=== PATIENT | female | born 1975 | race Two or more races ===

== ENCOUNTER 2016-07-20 14:14 | Inpatient (IN) | payer OTHER ==
[2016-07-20] MEDS ORDERED: KETOROLAC TROMETHAMINE 30 MG/1 ML VIAL IM ONE (15:06)
--- NOTE | 2016-07-20 15:08 | PDOC ---
History of Present Illness - General Chief Complaint: Pain Stated Complaint: LT SIDE PAIN,WEAKNESS,SWELLING Time Seen by Provider: 07/20/16 14:35 - History of Present Illness Initial Comments: 07/20/16 15:07 CHIEF COMPLAINT: left lower back pain, hip pain, leg pain HISTORY OF PRESENT ILLNESS: 41 yo F with hx of sciatica s/p lumbar spine surgery presents to [facility] with pain to the L side of her back, hip, and left leg. Patient states the pain sharp and is runs down the left side of her leg and she has severe pain any time she moves, stands, or walks. She reports that she normally takes up to 3 tabs of Baclofen for her sciatica but she took 6 yesterday as well as 3 tabs of Skelaxin, on top of 3 Gabapentin and 2 Aleve with no relief. She denies any loss of bowel of bladder function or urinary symptoms. She reports the pain to her left lower back and hip as a "burning" pain and that it "feels hot and swollen" to her left side. She also reports nausea today but denies any vomiting, diarrhea, or rectal bleeding. No recent travel or sick contacts. PAST MEDICAL HISTORY: Denies past medical history FAMILY HISTORY: Denies SOCIAL HISTORY: Occasional alcohol use. Denies tobacco, illicit drug use. SURGICAL HISTORY: Denies ALLERGIES: No known drug allergies REVIEW OF SYSTEMS General/Constitutional: Denies fever or chills. Denies weakness, weight change. HEENT: Denies change in vision. Denies ear pain or discharge. Denies sore throat. Cardiovascular: Denies chest pain or shortness of breath. Respiratory: Denies cough, wheezing, or hemoptysis. Gastrointestinal: Denies nausea, vomiting, diarrhea or constipation. Denies rectal bleeding. Genitourinary: Denies dysuria, frequency, or change in urination. Musculoskeletal: Severe 10/10 left lower back/hip/leg pain limiting movement. Skin and breasts: Denies rash or easy bruising. Neurologic: Denies headache, vertigo, loss of consciousness, or loss of sensation. PHYSICAL EXAM General Appearance: Uncomfortable-appearing, appropriately dressed. No apparent distress. HEENT: EOMI, PERRLA, normal ENT inspection, normal voice, TMs normal, pharynx normal. No conjunctival pallor. No photophobia, scleral icterus. Neck: Supple. Trachea midline. No tenderness, rigidity, carotid bruit, stridor , lymphadenopathy, or thyromegaly. Respiratory/Chest: Lungs CTAB. Cardiovascular: RRR. S1, S2. Gastrointestinal/Abdominal: Normal bowel sounds. Abdomen soft, non-distended. No tenderness or rebound tenderness. No organomegaly, pulsatile mass, guarding , hernia, hepatomegaly, splenomegaly. Lymphatic: No adenopathy, tenderness. Musculoskeletal/Extremities: Tenderness to left lower back vs L CVA tenderness. No saddle anesthesia or loss of sensation to lower legs bilaterally. Normal inspection. FROM of all extremities, normal capillary refill. Pelvis Stable. No CVA tenderness. No tenderness to extremities, pedal edema, swelling, erythema or deformity. Integumentary: Appropriate color, dry, warm. No cyanosis, erythema, jaundice or rash Neurologic: director of parks and recreation II-XII intact. Fully oriented, alert. Appropriate mood/affect. Motor strength 5/5. No appreciable EOM palsy, facial droop or sensory deficit. A&Ox3, follow commands, respond appropriately CN2-12: conjugate gaze, pupil round, equal and reactive to light. Visual field full to confrontation. EOMI without nystagmus, pursuit is smooth without saccade. Facial sensation and muscle activation intact bilaterally. Hearing intact bilaterally. Palate elevate symmetrically. Shoulder shrug and neck turn full strength. Tongue protrude midline. 07/20/16 16:50 07/20/16 17:36 Past History - Past Medical History Allergies/Adverse Reactions: Allergies Allergy/AdvReac Type Severity Reaction Status Date / Time No Known Allergies Allergy Verified 07/20/16 14:20 Home Medications: Ambulatory Orders Diazepam [Valium] 5 mg PO Q8H PRN #12 tablet MDD 3 07/20/16 GI Disorders: Yes (DIVERTICULITIS) - Psycho/Social/Smoking Cessation Hx Anxiety: No Suicidal Ideation: No Smoking Status: No Smoking History: Never smoked Number of Cigarettes Smoked Daily: 0 Information on smoking cessation initiated: No Hx Alcohol Use: No *Physical Exam - Vital Signs Last Vital Signs Temp Pulse Resp BP Pulse Ox 98 F 92 H 18 120/77 99 07/20/16 14:17 07/20/16 14:17 07/20/16 14:17 07/20/16 14:17 07/20/16 14:17 Medical Decision Making - Medical Decision Making 07/20/16 16:50 41 yo F with hx of sciatica s/p lumbar spine surgery presents to [facility] with pain to the L side of her back, hip, and left leg. -Upreg -30 mg Toradol Patient continues to c/o pain. -1 tab Percocet Patient reassessed, still complains of pain. -5mg Valium Patient reassessed, still unable to lie flat or move without pain, will admit to obs intractable back pain. Patient's PCP is MD Mike Jimenez. 07/20/16 17:43 MD Jimenez paged. Awaiting callback. 07/20/16 18:06 MD Jimenez paged again. Awaiting callback. Microblogged hospitalist 18:25 pm. MD Jimenez called back at 18:40pm MD Lou admits for Barbara today. Carmine paged 18:45. 07/20/16 19:18 Discussed case with MD Lou who accepts patient for inpatient observation. *DC/Admit/Observation/Transfer Diagnosis at time of Disposition: Acute exacerbation of chronic low back pain - Discharge Dispostion Admit: Yes - Prescriptions Prescriptions: Diazepam [Valium] 5 mg PO Q8H PRN #12 tablet MDD 3 PRN Reason: Back Pain - Referrals Referrals: Mike Jimenez MD [Primary Care Provider] - Liz Don MD [Staff Physician] - - Patient Instructions Printed Discharge Instructions: DI for Back Pain With Sciatica Additional Instructions: Please take medications as prescribed and follow up with Dr. Don tomorrow. If you experience any loss of bowel or bladder function, vomiting, loss of sensation to your legs, or any new or worsening symptoms, please return to the ER.
[2016-07-20] MEDS ORDERED: KETOROLAC TROMETHAMINE 30 MG/1 ML VIAL ONE (15:39)
[2016-07-20 15:56] LABS: URINE APPEARANCE CLEAR; URINE BLOOD NEGATIVE (NEGATIVE); URINE COLOR AMBER; URINE GLUCOSE (UA) NEGATIVE (NEGATIVE); URINE KETONE TRACE (NEGATIVE); URINE NITRITE NEGATIVE (NEGATIVE); URINE UROBILINOGEN 2.0 E.U/dl E.U./dl (0.2-1.0)
[2016-07-20 16:10] LABS: URINE LEUK ESTERASE TRACE (NEGATIVE); URINE PROTEIN 1+ (NEGATIVE)
[2016-07-20 16:12] LABS: URINE MUCUS RARE; URINE RBC 14 /hpf (0-3); URINE WBC 1 /hpf (3-5)
[2016-07-20] MEDS ORDERED: OXYCODONE/APAP 5/325MG COMBO TABLET PO ONE (16:24)
[2016-07-20] MEDS ORDERED: OXYCODONE/APAP 5/325MG COMBO TABLET ONE (16:32)
[2016-07-20] MEDS ORDERED: diazePAM 5 MG TABLET PO ONE (16:56)
[2016-07-20] MEDS ORDERED: diazePAM 5 MG TABLET ONE (17:00)
[2016-07-20] MEDS ORDERED: HYDROmorphone HCL CARPU-JECT 1 MG/1 ML DISP.SYRIN IVPUSH ONE (19:12)
[2016-07-20] MEDS ORDERED: ONDANSETRON 4 MG/2 ML VIAL ONE (22:18)
[2016-07-20] MEDS ORDERED: morphine CARPU-JECT 4 MG/1 ML DISP.SYRIN ONE (22:18)
[2016-07-20] MEDS ORDERED: morphine CARPU-JECT 4 MG/1 ML DISP.SYRIN IVPUSH ONE (22:31)
[2016-07-20] MEDS ORDERED: ONDANSETRON 4 MG/2 ML VIAL IVPB ONE (22:32)
[2016-07-21 00:40] VITALS: BMI 27.7
[2016-07-21] MEDS ORDERED: ONDANSETRON 4 MG/2 ML VIAL IVPB PRN (03:13)
[2016-07-21] MEDS ORDERED: morphine CARPU-JECT 4 MG/1 ML DISP.SYRIN IVPUSH ONE (03:15)
[2016-07-21] MEDS: morphine CARPU-JECT 4 MG/1 ML DISP.SYRIN IVPUSH PRN ×2 (08:36→13:00)
[2016-07-21] MEDS: HEPARIN NA (PORCINE) 5,000 UNITS/ML 1ML VIAL SQ SCH ×2 (10:49→21:48)
--- NOTE | 2016-07-21 12:01 | CONSULT ---
Consult - text type - Consultation Consultation Note: Neurology History of Present Illness CHIEF COMPLAINT: left lower back pain, hip pain, leg pain HISTORY OF PRESENT ILLNESS: 41 yo F with hx of sciatica s/p lumbar spine surgery with ongoing low back pain with radiation down L side of her back, hip, and left leg. Patient states the pain sharp and is runs down the left side of her leg and she has severe pain any time she moves, stands, or walks. She reports that she normally takes up to 3 tabs of Baclofen for her sciatica but she took 6 yesterday as well as 3 tabs of Skelaxin, on top of 3 Gabapentin and 2 Aleve with no relief. She denies any loss of bowel of bladder function or urinary symptoms. She reports the pain to her left lower back and hip as a "burning" pain and that it "feels hot and swollen" to her left side. Does not have recent MRI and appears uncomfortable, pain mgmt consulted. Allergies/Adverse Reactions: Allergies Allergy/AdvReac Type Severity Reaction Status Date / Time No Known Allergies Allergy Verified 07/20/16 14:20 Active Medications Heparin Sodium (Porcine) (Heparin -) 5,000 unit SQ BID [facility] Last Admin: 07/21/16 10:49 Dose: 5,000 unit Morphine Sulfate (Morphine Injection -) 4 mg IVPUSH Q4H PRN PRN Reason: PAIN Last Admin: 07/21/16 08:36 Dose: 4 mg Ondansetron HCl (Zofran Injection) 4 mg IVPB Q6H PRN PRN Reason: NAUSEA GI Disorders: Yes (DIVERTICULITIS) - Psycho/Social/Smoking Cessation Hx Anxiety: No Suicidal Ideation: No Smoking Status: No Smoking History: Never smoked Number of Cigarettes Smoked Daily: 0 Information on smoking cessation initiated: No Hx Alcohol Use: No REVIEW OF SYSTEMS General/Constitutional: Denies fever or chills. Denies weakness, weight change. HEENT: Denies change in vision. Denies ear pain or discharge. Denies sore throat. Cardiovascular: Denies chest pain or shortness of breath. Respiratory: Denies cough, wheezing, or hemoptysis. Gastrointestinal: Denies nausea, vomiting, diarrhea or constipation. Denies rectal bleeding. Genitourinary: Denies dysuria, frequency, or change in urination. Musculoskeletal: Severe 10/10 left lower back/hip/leg pain limiting movement. Neurologic: Denies headache, vertigo, loss of consciousness, or loss of sensation. *Physical Exam - Vital Signs Last Vital Signs Temp Pulse Resp BP Pulse Ox 98 F 92 H 18 120/77 99 07/20/16 14:17 07/20/16 14:17 07/20/16 14:17 07/20/16 14:17 07/20/16 14:17 PHYSICAL EXAM General Appearance: Uncomfortable-appearing, appropriately dressed. No apparent distress. HEENT: EOMI, PERRLA, normal ENT inspection, normal voice, TMs normal, pharynx normal. No conjunctival pallor. No photophobia, scleral icterus. Neck: Supple. Trachea midline. No tenderness, rigidity, carotid bruit, stridor , lymphadenopathy, or thyromegaly. Respiratory/Chest: Lungs CTAB. Cardiovascular: RRR. S1, S2. Gastrointestinal/Abdominal: Normal bowel sounds. Abdomen soft, non-distended. No tenderness or rebound tenderness. No organomegaly, pulsatile mass, guarding , hernia, hepatomegaly, splenomegaly. Lymphatic: No adenopathy, tenderness. Musculoskeletal/Extremities: Tenderness to left lower back vs L CVA tenderness. No saddle anesthesia or loss of sensation to lower legs bilaterally. Normal inspection. FROM of all extremities, normal capillary refill. Pelvis Stable. No CVA tenderness. No tenderness to extremities, pedal edema, swelling, erythema or deformity. Integumentary: Appropriate color, dry, warm. 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 Fully oriented, alert. Appropriate mood/affect. Motor strength 5/5. No appreciable EOM palsy, facial droop or sensory deficit. A&Ox3, follow commands, respond appropriately CN2-12: conjugate gaze, pupil round, equal and reactive to light. Visual field full to confrontation. EOMI without nystagmus, pursuit is smooth without saccade. Facial sensation and muscle activation intact bilaterally. Hearing intact bilaterally. Palate elevate symmetrically. Shoulder shrug and neck turn full strength. Tongue protrude midline. Medical Decision Making 41 yo F with hx of sciatica s/p lumbar spine surgery with ongoing low back pain with radiation down L side of her back, hip, and left leg. Does not have recent MRI and will order this Pain mgmt consulted Gabapentin to be restarted 300mg three times a day Baclofen 10mg TID Physical therapy Ice compresses May require injections
[2016-07-21] MEDS: BACLOFEN 10 MG TABLET (FP) PO SCH ×2 (13:01→21:44)
[2016-07-21] MEDS: GABAPENTIN 300 MG CAPSULE (FP) PO SCH ×2 (13:01→21:44)
--- NOTE | 2016-07-21 15:01 | HP ---
Admitting History and Physical - Admission Chief Complaint: intractable back pain History of Present Illness: Pt is a 41 y/o female w/ a long h/o chronic back pain who had a cervical lamnectomy/fusion years ago. Pt now presented to the er w/ intractable back pain. The pain radiates down her LLE w/ numbness and tingling. Despite being given IV dilaudid in ER pt still unable to stand due to pain. Pt states that the pain is the same whether she is standing, walking or lying down. History Source: Patient - Past Medical History ...LMP: 07/07/16 ...: No Musculoskeletal: Yes: Chronic low back pain - Smoking History Smoking history: Never smoked Aproximately how many cigarettes per day: 0 - Alcohol/Substance Use Hx Alcohol Use: No Home Medications - Allergies Allergies/Adverse Reactions: Allergies Allergy/AdvReac Type Severity Reaction Status Date / Time No Known Allergies Allergy Verified 07/20/16 14:20 - Home Medications Home Medications: Ambulatory Orders Diazepam [Valium] 5 mg PO Q8H PRN #12 tablet MDD 3 07/20/16 Baclofen 10 mg PO BID 07/21/16 Gabapentin [Neurontin -] 300 mg PO Q8H 07/21/16 Metaxalone [Metaxall] 800 mg PO BID 07/21/16 Family Disease History - Family Disease History Family History: Unremarkable Review of Systems - Review of Systems Constitutional: reports: No Symptoms Eyes: reports: No Symptoms HENT: reports: No Symptoms Neck: reports: Pain on Movement Cardiovascular: reports: No Symptoms Respiratory: reports: No Symptoms Gastrointestinal: reports: No Symptoms Genitourinary: reports: No Symptoms Musculoskeletal: reports: Back Pain Physical Examination Vital Signs: Vital Signs Temperature 98.5 F 07/21/16 14:56 Pulse Rate 78 07/21/16 14:56 Respiratory Rate 18 07/21/16 14:56 Blood Pressure 98/57 07/21/16 14:56 O2 Sat by Pulse Oximetry (%) 100 07/21/16 09:00 Eyes: Yes: WNL HENT: Yes: WNL Neck: Yes: Supple Cardiovascular: Yes: WNL, Regular Rate and Rhythm Respiratory: Yes: WNL, Regular, CTA Bilaterally Gastrointestinal: Yes: WNL, Normal Bowel Sounds, Soft Musculoskeletal: Yes: WNL Extremities: Yes: WNL Edema: No Neurological: Yes: WNL, Alert, Oriented ...Motor Strength: WNL Problem List - Problems (1) Acute exacerbation of chronic low back pain Assessment/Plan: Cont pain management Wll get neuro/pain management consult Check MRI LS spine PT eval Code(s): M54.5 - LOW BACK PAIN G89.29 - OTHER CHRONIC PAIN
--- NOTE | 2016-07-21 19:40 | CONSULT ---
Consult Consult Specialty:: Pain Management Reason for Consultation:: Back pain - History of Present Illness Chief Complaint: Back pain History of Present Illness: 41 yr old female with h/o Back and neck for 5 years. She had cervical fusion. She was admitted with h/o acute onset of back pain radiating to both legs and across the back , with intermittent numbness in legs. No bowel and bladder issues. - History Source History Provided By: Patient Limitations to Obtaining History: No Limitations - Past Medical History ...LMP: 07/07/16 ...: No Musculoskeletal: Yes: Chronic low back pain, Other (Neck pain ) - Past Surgical History Additional Surgical History: Anterior Cervical fusion. - Alcohol/Substance Use Hx Alcohol Use: No History of Substance Use: reports: None - Smoking History Smoking history: Never smoked Aproximately how many cigarettes per day: 0 Home Medications - Allergies Allergies/Adverse Reactions: Allergies Allergy/AdvReac Type Severity Reaction Status Date / Time No Known Allergies Allergy Verified 07/20/16 14:20 - Home Medications Home Medications: Ambulatory Orders Diazepam [Valium] 5 mg PO Q8H PRN #12 tablet MDD 3 07/20/16 Baclofen 10 mg PO BID 07/21/16 Gabapentin [Neurontin -] 300 mg PO Q8H 07/21/16 Metaxalone [Metaxall] 800 mg PO BID 07/21/16 Review of Systems - Review of Systems Constitutional: reports: No Symptoms Eyes: reports: No Symptoms HENT: reports: No Symptoms Neck: reports: No Symptoms Cardiovascular: reports: No Symptoms Respiratory: reports: No Symptoms Gastrointestinal: reports: No Symptoms Genitourinary: reports: No Symptoms Musculoskeletal: reports: Back Pain Neurological: reports: No Symptoms Endocrine: reports: No Symptoms Hematology/Lymphatic: reports: No Symptoms Psychiatric: reports: No Symptoms Pain Intensity: 8 Physical Exam Vital Signs: Vital Signs Temperature 98.6 F 07/21/16 18:29 Pulse Rate 91 H 07/21/16 18:29 Respiratory Rate 18 07/21/16 18:29 Blood Pressure 107/67 07/21/16 18:29 O2 Sat by Pulse Oximetry (%) 100 07/21/16 09:00 Constitutional: Yes: Well Nourished Eyes: Yes: WNL HENT: Yes: WNL Neck: Yes: WNL, Supple Gastrointestinal: Yes: WNL Musculoskeletal: Yes: Back Pain, Muscle Pain (muscle spasm), Other Edema: No Problem List - Problems (1) Muscle spasm Code(s): M62.838 - OTHER MUSCLE SPASM (2) Back pain Code(s): M54.9 - DORSALGIA, UNSPECIFIED Qualifiers: Back pain location: low back pain Chronicity: acute Back pain laterality: bilateral (3) Lumbar herniated disc Code(s): M51.26 - OTHER INTERVERTEBRAL DISC DISPLACEMENT, LUMBAR REGION Assessment/Plan Discussed in detail and answered all her question . Plan 1. Baclofen 10 mg PO tID Neurontin 300 mg PO TID D/c IV Morphine Morphine sulfate Immediate Release 15 mg PO Q6 PRN ( max 4 /day) Diclofenac 100 mg po qd after meal. D/C Mobic Physical Therapy eval Follow up after MRI of L- S spine. Thanks for your kind referral. Dr. Butts [phone]
[2016-07-21] MEDS ORDERED: DICLOFENAC SODIUM 75 MG TABLET.DR PO ONE (19:51)
[2016-07-21] MEDS: morphine SULFATE IMMEDIATE RELEASE 30 MG TAB PO PRN (20:31)
[2016-07-21] MEDS: DOCUSATE SODIUM 100 MG CAPSULE (FP) PO SCH (21:45)
[2016-07-22] MEDS: morphine SULFATE IMMEDIATE RELEASE 30 MG TAB PO PRN ×3 (06:10→19:23)
[2016-07-22] MEDS: GABAPENTIN 300 MG CAPSULE (FP) PO SCH ×3 (06:12→22:01)
[2016-07-22] MEDS: BACLOFEN 10 MG TABLET (FP) PO SCH ×3 (06:12→22:01)
[2016-07-22 07:37] LABS: BASOPHIL 0.2 % (0-2.0); EOSINOPHIL 3.4 % (0-4.5); MCH 31.6 pg (25.7-33.7); MCHC 33.7 g/dl (32.0-36.0); MEAN CELL VOLUME 93.6 fl (80-96); MEAN PLT VOLUME 7.4 fl (7.5-11.1); NEUTROPHILS 56.8 % (42.8-82.8); PLATELET COUNT 269 K/MM3 (134-434); RDW 13.7 % (11.6-15.6); WHITE BLOOD COUNT 7.1 K/mm3 (4.0-10.0)
[2016-07-22 08:13] LABS: ALBUMIN 3.5 g/dl (3.4-5.0); ALK PHOS 96 U/L (45-117); ANION GAP 9 (8-16); BILIRUBIN,TOTAL 0.4 mg/dL (0.2-1.0); CALCIUM 8.4 mg/dL (8.5-10.1); CO2 28 mmol/L (21-32); CREATININE 0.5 mg/dL (0.55-1.02); GLUCOSE,RANDOM 78 mg/dL (74-106); SGOT/AST 28 U/L (15-37); SGPT/ALT 34 U/L (12-78)
[2016-07-22] MEDS: HEPARIN NA (PORCINE) 5,000 UNITS/ML 1ML VIAL SQ SCH ×2 (12:01→22:01)
--- NOTE | 2016-07-22 13:26 | PN ---
Progress Note (short form) - Note Progress Note: Neurology History of Present Illness 41 yo F with hx of sciatica s/p lumbar spine surgery with ongoing low back pain with radiation down L side of her back, hip, and left leg. Patient states the pain sharp and is runs down the left side of her leg and she has severe pain any time she moves, stands, or walks. MRI L spine completed and showed central bulging at L4/L5 with deforming thecal sac but not root impingement. Symptoms localized to lower L spine, leftsided, with some radiation to anterior. Mentioned fibroid also noted on MRI to patient and recommended follow up regarding this. Pain mgmt following patient, Dr. Butts, and recommended IR Morphine which has provided some relief and patient ambulating with cane today. Active Medications Baclofen (Lioresal -) 10 mg PO TID [facility] Last Admin: 07/22/16 06:12 Dose: 10 mg Docusate Sodium (Colace -) 300 mg PO HS [facility] Last Admin: 07/21/16 21:45 Dose: 300 mg Gabapentin (Neurontin -) 600 mg PO TID [facility] Heparin Sodium (Porcine) (Heparin -) 5,000 unit SQ BID [facility] Last Admin: 07/22/16 12:01 Dose: Not Given Morphine Sulfate (Msir -) 15 mg PO Q6H PRN PRN Reason: PAIN Last Admin: 07/22/16 12:03 Dose: 15 mg Ondansetron HCl (Zofran Injection) 4 mg IVPB Q6H PRN PRN Reason: NAUSEA *Physical Exam Vital Signs Temperature 98.5 F 07/22/16 06:32 Pulse Rate 87 07/22/16 06:32 Respiratory Rate 20 07/22/16 06:32 Blood Pressure 104/76 07/22/16 06:32 O2 Sat by Pulse Oximetry (%) 100 07/21/16 21:00 PHYSICAL EXAM General Appearance: Uncomfortable-appearing, appropriately dressed. No apparent distress. HEENT: EOMI, PERRLA, normal ENT inspection, normal voice, TMs normal, pharynx normal. No conjunctival pallor. No photophobia, scleral icterus. Neck: Supple. Trachea midline. No tenderness, rigidity, carotid bruit, stridor , lymphadenopathy, or thyromegaly. Respiratory/Chest: Lungs CTAB. Cardiovascular: RRR. S1, S2. Gastrointestinal/Abdominal: Normal bowel sounds. Abdomen soft, non-distended. No tenderness or rebound tenderness. No organomegaly, pulsatile mass, guarding , hernia, hepatomegaly, splenomegaly. Lymphatic: No adenopathy, tenderness. Musculoskeletal/Extremities: Tenderness to left lower back vs L CVA tenderness. No saddle anesthesia or loss of sensation to lower legs bilaterally. Normal inspection. FROM of all extremities, normal capillary refill. Pelvis Stable. No CVA tenderness. No tenderness to extremities, pedal edema, swelling, erythema or deformity. Integumentary: Appropriate color, dry, warm. 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 Fully oriented, alert. Appropriate mood/affect. Motor strength 5/5. No appreciable EOM palsy, facial droop or sensory deficit. A&Ox3, follow commands, respond appropriately CN2-12: conjugate gaze, pupil round, equal and reactive to light. Visual field full to confrontation. EOMI without nystagmus, pursuit is smooth without saccade. Facial sensation and muscle activation intact bilaterally. Hearing intact bilaterally. Palate elevate symmetrically. Shoulder shrug and neck turn full strength. Tongue protrude midline. Medical Decision Making 41 yo F with hx of sciatica s/p lumbar spine surgery with ongoing low back pain with radiation down L side of her back, hip, and left leg. MRI reviewed and discussed with patient Pain mgmt follow up, defer medication change to Dr. Butts Gabapentin was 600mg TID as outpatient and I changed this Baclofen 10mg TID Physical therapy Ice compresses Cane use as needed May require injections, defer to Dr. Butts
--- NOTE | 2016-07-22 20:22 | PN ---
Progress Note, Physician - Current Medication List Current Medications: Active Medications Baclofen (Lioresal -) 10 mg PO TID [facility] Last Admin: 07/22/16 14:48 Dose: 10 mg Docusate Sodium (Colace -) 300 mg PO HS [facility] Last Admin: 07/21/16 21:45 Dose: 300 mg Gabapentin (Neurontin -) 600 mg PO TID [facility] Last Admin: 07/22/16 14:48 Dose: 600 mg Heparin Sodium (Porcine) (Heparin -) 5,000 unit SQ BID [facility] Last Admin: 07/22/16 12:01 Dose: Not Given Morphine Sulfate (Msir -) 15 mg PO Q6H PRN PRN Reason: PAIN Last Admin: 07/22/16 19:23 Dose: 15 mg Ondansetron HCl (Zofran Injection) 4 mg IVPB Q6H PRN PRN Reason: NAUSEA - Objective Vital Signs: Vital Signs Temperature 97.9 F 07/22/16 16:30 Pulse Rate 88 07/22/16 16:30 Respiratory Rate 20 07/22/16 16:30 Blood Pressure 120/74 07/22/16 16:30 O2 Sat by Pulse Oximetry (%) 100 07/22/16 09:00 Labs: CBC, BMP 07/22/16 06:00 07/22/16 06:00 Problem List - Problems (1) Acute exacerbation of chronic low back pain Code(s): M54.5 - LOW BACK PAIN G89.29 - OTHER CHRONIC PAIN
[2016-07-22] MEDS: DOCUSATE SODIUM 100 MG CAPSULE (FP) PO SCH (22:01)
[2016-07-23] MEDS: GABAPENTIN 300 MG CAPSULE (FP) PO SCH ×2 (06:16→14:30)
[2016-07-23] MEDS: BACLOFEN 10 MG TABLET (FP) PO SCH ×2 (06:16→14:30)
[2016-07-23] MEDS: morphine SULFATE IMMEDIATE RELEASE 30 MG TAB PO PRN ×2 (06:16→12:14)
[2016-07-23] MEDS: HEPARIN NA (PORCINE) 5,000 UNITS/ML 1ML VIAL SQ SCH (10:20)
[2016-07-23 15:01] VITALS: BP 114/80; PULSE 96; TEMP 98.2
== END 2016-07-23 15:19 | disposition home or self-care (01) | DRG 347 ==
LOC: JERFT 14:14 → JERBED 19:11 → J7W 07-21 02:56 → OBSVTOIN 07-21 03:10
PROVIDERS: ADMIT Internal Medicine; ATTEND Internal Medicine
DX: M51.17 Intervertebral disc disorders with radiculopathy, lumbosacral region (principal); M51.26 Other intervertebral disc displacement, lumbar region; M25.552 Pain in left hip; M79.662 Pain in left lower leg; G89.29 Other chronic pain; R20.0 Anesthesia of skin; M62.838 Other muscle spasm; M54.2 Cervicalgia; Z98.1 Arthrodesis status
CPT/HCPCS: 36415; 72148-TC; 80053; 81003; 81015; 84703; 85025; 87086; 97116-GP; 97161-GP; 99283-25; G0378; J0475; J1644

== ENCOUNTER 2016-10-14 19:56 | Emergency (ER) | payer OTHER ==
[2016-10-14 20:52] VITALS: BP 124/80; PULSE 78; TEMP 98; BMI 27.0
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
--- NOTE | 2016-10-14 22:06 | PDOC ---
Attending Attestation - Resident Resident Name: Jake Good - ED Attending Attestation I have performed the following: I have examined & evaluated the patient, The case was reviewed & discussed with the resident, I agree w/resident's findings & plan, Exceptions are as noted - HPI HPI: The patient is a 41 yo F with a past medical history of sciatica s/p lumbar spine surgery who presents with 5 days s/p bending over and having a 5 year old jumped on her and felt a pop. Patient reports shes been experiencing paresthesias down L arm and unmanageable L arm pain. She notes her pain is not alleviated by morphine she took at home. The patient states she feels pins and needles consistently down her neck and arm. The patient denies headache. The patient denies chest pain, lightheadedness and palpitations. The patient denies nausea, vomiting, diarrhea and abdominal pain. PCP: Mike Jimenez - Physicial Exam PE: GENERAL: Well developed, well nourished. Awake and alert. No acute distress. HEENT: Normocephalic, atraumatic. PERRLA, EOMI. No conjunctival pallor. Sclera are non- icteric. Moist mucous membranes. Oropharynx is clear. NECK: Supple. Full ROM. No JVD. Carotid pulses 2+ and symmetric, without bruits. No thyromegaly. No lymphadenopathy. CARDIOVASCULAR: Regular rate and rhythm. No murmurs, rubs, or gallops. Distal pulses are 2+ and symmetric. PULMONARY: No evidence of respiratory distress. Lungs clear to auscultation bilaterally. No wheezing, rales or rhonchi. ABDOMINAL: Soft. Non-tender. Non-distended. No rebound or guarding. No organomegaly. Normoactive bowel sounds. MUSCULOSKELETAL Normal range of motion at all joints. No bony deformities or tenderness. C1-C7 tenderness. EXTREMITIES: No cyanosis. No clubbing. No edema. No calf tenderness. SKIN: Warm and dry. Normal capillary refill. No rashes. No jaundice. NEUROLOGICAL: No gross focal neurological deficits. PSYCHIATRIC: Cooperative. Good eye contact. Appropriate mood and affect. <Mildred Rebollar - Last Filed: 10/14/16 22:12> - Resident Resident Name: Jake Good - ED Attending Attestation I have performed the following: I have examined & evaluated the patient, The case was reviewed & discussed with the resident, I agree w/resident's findings & plan - Physicial Exam PE: 10/15/16 02:02 *Physical Exam General Appearance: Yes: Appropriately Dressed. No: Apparent Distress, Intoxicated HEENT: positive: EOMI, LORENZO, Normal ENT Inspection, Normal Voice, TMs Normal, Pharynx Normal. negative: Pale Conjunctivae, Photophobia, Scleral Icterus (R), Scleral Icterus (L) Neck: positive: Trachea midline, Normal Thyroid, Supple. negative: Tender, Rigid, Carotid bruit, Stridor, Lymphadenopathy (R), Lymphadenopathy (L), Thyromegaly Respiratory/Chest: positive: Lungs Clear, Normal Breath Sounds. negative: Chest Tender, Respiratory Distress, Accessory Muscle Use, Labored Respiration, RES, Crackles, Rales, Rhonchi, Stridor, Wheezing, Dullness Cardiovascular: positive: Regular Rhythm, Regular Rate, S1, S2. negative: Edema , JVD, Murmur, Bradycardia, Tachycardia Vascular Pulses: Dorsalis-Pedis (R): 2+, Doralis-Pedis (L): 2+ Gastrointestinal/Abdominal: positive: Normal Bowel Sounds, Flat, Soft. negative : Tender, Organomegaly, Pulsatile Mass, Increased Bowel Sounds, Decreased BS, Distended, Guarding, Rebound, Hernia, Hepatomegaly, Spleenomegaly Lymphatic: negative: Adenopathy, Tenderness Musculoskeletal: positive: Normal Inspection. negative: CVA Tenderness, Decreased Range of Motion Extremity: positive: Normal Capillary Refill, Normal Inspection, Normal Range of Motion, Pelvis Stable. negative: Tender, Pedal Edema, Swelling, Erythema Integumentary: positive: Normal Color, Dry, Warm. negative: Cyanotic, Erythema , Jaundice, Rash Neurologic: positive: jewelry coater II-XII NML intact, Fully Oriented, Alert, Normal Mood/ Affect, Motor Strength 5/5. negative: EOM Palsy, Facial Droop, Sensory Deficit <Umer Sutton - Last Filed: 10/15/16 02:04> Discharge Disposition - Discharge Dispostion Last Admission D/C Date: 07/23/16 Admit: No <Umer Sutton - Last Filed: 10/15/16 02:04> - Diagnosis Muscle spasm - Discharge Dispostion Disposition: HOME Condition at time of disposition: Stable - Prescriptions Prescriptions: Ibuprofen [Motrin] 600 mg PO TID #30 tablet - Patient Instructions Printed Discharge Instructions: DI for Cervical Muscle Strain Additional Instructions: Please take medications as directed. Follow up with doctor if symptoms don't improve
[2016-10-14] MEDS ORDERED: KETOROLAC TROMETHAMINE 60 MG/2 ML VIAL IM ONE (23:10)
[2016-10-14] MEDS ORDERED: KETOROLAC TROMETHAMINE 60 MG/2 ML VIAL ONE (23:25)
== END 2016-10-15 02:06 | disposition home or self-care (01) ==
LOC: JER 19:56
PROC: 3E0233Z Introduction of Anti-inflammatory into Muscle, Percutaneous Approach (ICD-10-PCS; principal; 2016-10-14)
DX: S16.1XXA Strain of muscle, fascia and tendon at neck level, initial encounter (principal); W50.0XXA Accidental hit or strike by another person, initial encounter; Y93.89 Activity, other specified; Y92.038 Other place in apartment as the place of occurrence of the external cause
CPT/HCPCS: 72125-TC; 84703; 99282-25

== ENCOUNTER 2021-09-14 16:17 | Emergency (ER) | payer OTHER ==
[2021-09-14 16:38] VITALS: BP 119/74; PULSE 86; TEMP 98.2; BMI 29.8
[2021-09-14] MEDS ORDERED: KETOROLAC TROMETHAMINE 30 MG/1 ML VIAL IM ONE (18:00)
[2021-09-14] MEDS ORDERED: CYCLOBENZAPRINE HCL 10 MG TABLET (FP) PO ONE (18:01)
[2021-09-14] MEDS ORDERED: KETOROLAC TROMETHAMINE 30 MG/1 ML VIAL ONE (18:11)
[2021-09-14] MEDS ORDERED: CYCLOBENZAPRINE HCL 10 MG TABLET (FP) ONE (18:11)
== END 2021-09-14 20:14 | disposition home or self-care (01) ==
LOC: JERFT 16:17 → JER 16:17 → JERFT 20:14
PROC: 3E0233Z Introduction of Anti-inflammatory into Muscle, Percutaneous Approach (ICD-10-PCS; principal; 2021-09-14)
DX: M79.601 Pain in right arm (principal)
CPT/HCPCS: 93971; 96372; 99284-25